=== PATIENT | female | born 1960 | race Caucasian/White ===

== ENCOUNTER 2019-07-14 04:01 | Emergency (ER) | payer OTHER, SELFPAY | END 2019-07-14 09:00 | disposition home or self-care (01) | LOC: ERS 04:01 | DX: S09.90XA Unspecified injury of head, initial encounter (principal); S02.2XXA Fracture of nasal bones, initial encounter for closed fracture; I10 Essential (primary) hypertension; W18.30XA Fall on same level, unspecified, initial encounter ==